=== PATIENT | male | born 1995 | race Caucasian/White ===

== ENCOUNTER 2020-07-27 01:05 | Emergency (ER) | payer OTHER ==
--- NOTE | 2020-07-27 02:35 | RADIOLOGY REPORT (SQ) ---
Right foot x-ray three views on 07/27/2020 at 1:43 AM CLINICAL INDICATION: Pain after kicking wall, lateral foot pain COMPARISON: None FINDINGS: There are no fractures. Visualized joints are well aligned. No bony abnormality is noted. IMPRESSION: No acute abnormality.
--- NOTE | 2020-07-27 02:37 | ER Document Report ---
HPI - HPI Patient complains to provider of: Right foot injury Time Seen by Provider: 07/27/20 02:15 Onset: Just prior to arrival Onset/Duration: Sudden Quality of pain: Achy Pain Level: 4 Context: Patient states that he was in the shower and got called to an EMS call. Patient states he was rushing out of the shower, slid and hit his foot up against a wall. Patient complains of right foot pain and anterior ankle tenderness. Associated Symptoms: denies: Vomiting Exacerbated by: Standing, Movement, Walking Relieved by: Denies Similar symptoms previously: No Recently seen / treated by doctor: No - ROS ROS below otherwise negative: Yes Systems Reviewed and Negative: Yes All other systems reviewed and negative - NEURO Neurology: DENIES: Weakness - GASTROINTESTINAL Gastrointestinal: DENIES: Nausea - MUSCULOSKELETAL Musculoskeletal: REPORTS: Extremity pain - DERM Skin Color: Normal Skin Problems: None Past Medical History - General Information source: Patient - Social History Smoking Status: Never Smoker Frequency of alcohol use: None Drug Abuse: None Occupation: EMS Family History: Reviewed & Not Pertinent - Medical History Medical History: Negative Past Surgical History: Reports: Hx Appendectomy Vertical Provider Document - CONSTITUTIONAL Agree With Documented VS: Yes Exam Limitations: No Limitations General Appearance: WD/WN, No Apparent Distress, Cachetic - HEENT HEENT: Atraumatic, Normocephalic - NECK Neck: Normal Inspection - RESPIRATORY Respiratory: No Respiratory Distress - CARDIOVASCULAR Pulses: Normal: Dorsalis pedis - MUSCULOSKELETAL/EXTREMETIES Musculoskeletal/Extremeties: MAEW, FROM, Tender - Right foot tenderness over lateral and dorsal midfoot area, right anterior ankle tenderness, No Edema. negative: Eccymosis - NEURO Level of Consciousness: Awake, Alert, Appropriate Motor/Sensory: No Motor Deficit, No Sensory Deficit - DERM Integumentary: Warm, Dry, No Rash Course - Re-evaluation Re-evalutation: 07/27/20 03:24 Patient without any acute fracture, will immobilize and refer to orthopedics for any persistent pain or problems. Patient declined pain medication here in the department. - Vital Signs Vital signs: Temp Pulse Resp BP Pulse Ox 98.6 F 94 20 125/65 97 07/27/20 01:17 07/27/20 01:17 07/27/20 01:17 07/27/20 01:17 07/27/20 01:17 - Diagnostic Test Radiology reviewed: Image reviewed Procedures - Immobilization Right Foot Pre-Proc Neuro Vasc Exam: Normal Immobilizer type: Cesar wrap, Post-op shoe Performed by: RN Post-Proc Neuro Vasc Exam: Normal Alignment checked and good: Yes Discharge - Discharge Clinical Impression: Right foot sprain Qualifiers: Encounter type: initial encounter Qualified Code(s): S93.601A - Unspecified sprain of right foot, initial encounter Condition: Stable Disposition: HOME, SELF-CARE Instructions: Acetaminophen, Cesar Wrap ([facility]), Use of Crutches ([facility]), Use of Elcu-Iot-Ixfovjd Ibuprofen ([facility]), Ice & Elevation ([facility]), Post-Op Shoe ([facility]), Sprain ([facility]) Additional Instructions: Return immediately for any new or worsening symptoms Followup with your primary care provider, call tomorrow to make a followup appointment Weightbearing as tolerated Follow-up with orthopedics for any persistent pain or problems Forms: Return to Work Referrals: [facility] ([facility]) [Provider Group] - Follow up as needed
--- NOTE | 2020-07-27 03:25 | RADIOLOGY REPORT (SQ) ---
EXAM: XR Right Ankle Complete, 3 or More Views EXAM DATE/TIME: 07/27/2020 02:41 CLINICAL HISTORY: The patient is 24 years old and is Male; slid, hit wall, r ankle/foot pain TECHNIQUE: Frontal, lateral and oblique views of the right ankle. COMPARISON: No relevant prior studies available. FINDINGS: BONES/JOINTS: No acute fracture. No dislocation. The ankle joint is well-maintained. SOFT TISSUES: No significant soft tissue swelling visualized. IMPRESSION: No acute findings.
[2020-07-27 03:37] VITALS: BP 147/78
== END 2020-07-27 03:36 | disposition home or self-care (01) ==
LOC: ER 01:05
DX: S93.601A Unspecified sprain of right foot, initial encounter (principal); M79.671 Pain in right foot; M25.571 Pain in right ankle and joints of right foot; W18.2XXA Fall in (into) shower or empty bathtub, initial encounter
CPT/HCPCS: 99283